=== PATIENT | male | born 1980 | race Caucasian/White ===

== ENCOUNTER → 2020-04-09 08:04 | Outpatient (BNVA) | payer BC, SELFPAY | PROVIDERS: PCP Family Medicine; Referring Provider Family Medicine; Visit Provider Surgery | DX: Z76.89 Persons encountering health services in other specified circumstances (principal) ==

== ENCOUNTER → 2020-05-19 07:25 | Outpatient (BNVA) | payer BC, SELFPAY | PROVIDERS: PCP Family Medicine; Visit Provider Surgery | DX: Z76.89 Persons encountering health services in other specified circumstances (principal) ==

== ENCOUNTER 2020-05-24 10:02 | Outpatient (REF) | payer BC, SELFPAY ==
[2020-05-24 10:48] LABS: MANUAL DIFF FLAG NO
[2020-05-24 11:05] LABS: Basophils Percent Auto 0.7 % (0-2); Eosinophils Absolute Auto 0.1 X10*3/uL (0.0-0.4); Eosinophils Percent Auto 1.9 % (0-4); Hematocrit 45.9 % (42-52); Hemoglobin 15.6 g/dl (14.0-18.0); Imm Gran Abs Auto 0.01 X10*3/uL (0.00-0.03); Imm Gran Pct Auto 0.2 % (0.0-0.4); Lymphocytes Absolute Auto 1.3 X10*3/uL (1.2-4.9); Lymphocytes Percent Auto 30.8 % (20-40); Mean Corpuscular Hemoglobin 30.8 pg (27.0-33.0); Mean Corpuscular Volume 90.7 fL (80-98); Mean Platelet Volume 9.6 fL (9.4-12.4); Monocytes Absolute Auto 0.3 X10*3/uL (0.1-1.2); Monocytes Percent Auto 6.5 % (2-11); Neutrophils Absolute Auto 2.6 X10*3/uL (2.0-8.3); Neutrophils Percent Auto 59.9 % (45-73); Platelet Count 220 X10*3/uL (160-400); Red Blood Count 5.06 X10*6/uL (4.60-5.80); Red Cell Distribution Width 11.7 % (11.0-16.0); White Blood Count 4.3 X10*3/uL (4.8-10.8)
[2020-05-24 11:11] LABS: Estimated Average Glucose 105 mg/dL; Hemoglobin A1c % 5.3 %
[2020-05-24 11:14] LABS: Alanine Aminotransferase 13 U/L (0-40); Albumin Level 4.7 g/dL (3.5-5.0); Alkaline Phosphatase 53 U/L (39-117); Anion Gap 13 (12-20); Aspartate Amino Transferase 16 U/L (5-37); Bilirubin Total 0.9 mg/dL (0.0-1.0); Blood Urea Nitrogen 17 mg/dL (9-16); C Reactive Protein 0.22 mg/dL (< or = 0.50); Calcium 9.6 mg/dL (8.4-10.2); Carbon Dioxide 31 mmol/L (22-29); Chloride 103 mmol/L (96-108); Cholesterol 206 mg/dL; Estimated Glomerular Filt Rate > 60; Glucose Random 90 mg/dL (60-115); HDL Cholesterol 43 mg/dL; LDL Cholesterol Calculated 146 mg/dl; Potassium 4.7 mmol/l (3.3-5.1); Sodium 142 mmol/L (135-145); Total Protein 7.3 g/dL (6.5-8.0); Triglycerides 87 mg/dL
[2020-05-24 11:16] LABS: Prothrombin Time 12.4 SEC (10.8-13.0)
[2020-05-24 11:19] LABS: Partial Thromboplastin Time 40.8 SEC (24.1-38.0)
[2020-05-24 11:35] LABS: Ferritin 137 ng/mL (20-250); TSH reflex Free T4 1.15 mIU/mL (0.32-4.0); Vitamin D 25-OH Total 42.9 ng/mL (>30)
[2020-05-25 14:03] LABS: PTHI 34 pg/mL (14-64)
[2020-05-26 09:45] LABS: Vitamin B12 986 pg/mL (200-900)
[2020-05-26 18:42] LABS: Insulin Level Total 5.7 uIU/mL
[2020-05-27 13:42] LABS: Zinc 84 mcg/dL (60-130)
[2020-05-29 11:17] LABS: Vitamin B1 25 nmol/L (8-30)
[2020-05-30 00:58] LABS: Vitamin A 75 mcg/dL (38-98)
== END 2020-05-24 10:03 | disposition home or self-care (01) ==
LOC: HO.LAB 10:02
PROVIDERS: PCP Family Medicine; Visit Provider Surgery
DX: K90.9 Intestinal malabsorption, unspecified (principal); E66.3 Overweight
CPT/HCPCS: 36415; 80053; 80061; 82306; 82607; 82728; 83036; 83525; 83970; 84425; 84443; 84590; 84630; 85025; 85610; 85730; 86140

== ENCOUNTER → 2020-06-18 08:04 | Outpatient (BNVA) | payer BC, SELFPAY | PROVIDERS: PCP Family Medicine; Visit Provider Surgery | DX: Z76.89 Persons encountering health services in other specified circumstances (principal) ==

== ENCOUNTER → 2020-07-28 08:10 | Outpatient (BNVA) | payer BC, SELFPAY | PROVIDERS: PCP Family Medicine; Visit Provider Surgery ==

== ENCOUNTER → 2020-09-03 08:04 | Outpatient (BNVA) | payer BC, SELFPAY | PROVIDERS: PCP Family Medicine; Visit Provider Surgery ==

== ENCOUNTER → 2020-10-03 08:12 | Outpatient (BNVA) | payer BC, SELFPAY | PROVIDERS: PCP Family Medicine; Visit Provider Surgery ==

== ENCOUNTER → 2020-11-03 08:12 | Outpatient (BNVA) | payer BC, SELFPAY | PROVIDERS: PCP Family Medicine; Visit Provider Surgery ==

== ENCOUNTER → 2021-12-28 13:02 | Outpatient (BNVA) | payer OTHER, SELFPAY | PROVIDERS: PCP Family Medicine; Visit Provider Physician Assistant Medical | DX: S80.211A Abrasion, right knee, initial encounter (principal); S63.502A Unspecified sprain of left wrist, initial encounter; W01.0XXA Fall on same level from slipping, tripping and stumbling without subsequent striking against object, initial encounter | CPT/HCPCS: 73110; 73130; 99203 ==

== ENCOUNTER → 2022-01-04 13:13 | Outpatient (BNVA) | payer OTHER, SELFPAY | PROVIDERS: PCP Family Medicine; Visit Provider Physician Assistant Medical | DX: S80.211A Abrasion, right knee, initial encounter (principal); S63.502A Unspecified sprain of left wrist, initial encounter; W01.0XXA Fall on same level from slipping, tripping and stumbling without subsequent striking against object, initial encounter | CPT/HCPCS: 99213 ==

== ENCOUNTER → 2022-01-13 14:37 | Outpatient (BNVA) | payer OTHER, SELFPAY | PROVIDERS: PCP Family Medicine; Visit Provider Physician Assistant Medical | DX: S63.502A Unspecified sprain of left wrist, initial encounter (principal); W01.0XXA Fall on same level from slipping, tripping and stumbling without subsequent striking against object, initial encounter | CPT/HCPCS: 99213 ==

== ENCOUNTER → 2022-01-29 13:52 | Outpatient (BNVA) | payer OTHER, SELFPAY | PROVIDERS: PCP Family Medicine; Visit Provider Physician Assistant | DX: M25.532 Pain in left wrist (principal) | CPT/HCPCS: 99213 ==

== ENCOUNTER → 2022-02-17 14:12 | Outpatient (BNVA) | payer OTHER, SELFPAY | PROVIDERS: PCP Family Medicine; Visit Provider Physician Assistant | DX: M25.532 Pain in left wrist (principal) | CPT/HCPCS: 99214 ==

== ENCOUNTER 2022-02-19 11:04 | Outpatient (REF) | payer OTHER, SELFPAY ==
--- NOTE | ~2022-02-19 | MR_ITS ---
EXAMINATION: MR WRIST WITHOUT CONTRAST, LEFT CLINICAL INFORMATION: Falling injury. Dorsal pain with numbness to the thumb. COMPARISON: None TECHNIQUE: Multiplanar MR imaging was obtained through the left wrist without contrast on a 1.5 Shanita magnet. FINDINGS: Ligaments/TFCC: Triangular fibrocartilage complex is intact. The volar ulnocarpal ligaments are edematous and thickened, as are the volar radial scaphocapitate and long radiolunate ligaments, most consistent with sprains. No discrete tears. A sprain of the dorsal radiocarpal ligament is also suspected, characterized by ligamentous thickening and edema signal. A small, chronic-appearing perforation is suspected in the dorsal margin of the proximal band of the scapholunate ligament. Scapholunate and lunotriquetral ligaments are otherwise intact. Bones And Articular Cartilage: Mild edema signal at the dorsal aspect of the scaphoid waist likely corresponds to an osseous contusion. No fracture or malalignment. Bone marrow signal is otherwise normal. Articular cartilage appears well-preserved. Joint Fluid: Mild synovitis at the radiocarpal joint with trace joint fluid. No additional effusions. Muscles And Tendons: Intact. No tendon tears or tenosynovitis. Normal muscle signal. Nerves: Carpal tunnel and Guyon's canal are unremarkable. Superficial soft tissues: No significant ganglion cysts. MR/MR wrist LT wo con IMPRESSION: 1. No fracture or malalignment. Probable osseous contusion at the dorsal margin of the scaphoid. 2. Sprain of multiple volar and dorsal extrinsic wrist ligaments. No tears. Intact intrinsic wrist ligaments. 3. Mild radiocarpal synovitis, possibly posttraumatic.
== END 2022-02-19 11:05 | disposition home or self-care (01) ==
LOC: HO.MRI 11:04
PROVIDERS: Visit Provider Internal Medicine
DX: M25.532 Pain in left wrist (principal); R20.0 Anesthesia of skin
CPT/HCPCS: 73221

== ENCOUNTER 2022-03-04 14:00 | Outpatient (RCR) | payer OTHER, BC, SELFPAY ==
--- NOTE | 2022-01-29 15:28 | MHC.OT.OEV ---
[address] [phone] F: [phone] Occupational Therapy Evaluation Diagnosis: Left wrist sprain Date of Onset: 12/27/21 Date of Surgery: Attending Provider: Jeimy Jade Prescribed Treatment: Galilea and marek MD Follow Up Appointment: History of Current Condition: Pt reports he tripped and fell on his left dominant hand at work Seen in the [facility] the next day. XR neg.. Was issued a pre kris wrist splint, put on light duty and given some home exercises. Pt to follow up with the [facility]. 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 Mild difficulty with jars Pain with lifting over 10 gal Severe difficulty with hand tools...and power tools Light duty work, avoiding hammer with left... Sleep: Mild difficulty sleeping on left side.. Driving: Wearing the wrist brace Vision: Balance: Pain Assessment Pain Score: 4 Pain Scale Used: Numeric (0 - 10) Pain Location and Description: 0-4 left volar ulnar wrist, dorsal wrist with wt bearing Aggravating Factors: Wt on left hand or bumping or jarring the hand Alleviating Factors: Compression from the wrist brace Skin and Soft Tissue Assessment Skin and Soft Tissue: Comments: No abnormalities noted Nerve assessment Ulnar Nerve: Median Nerve: Radial Nerve: Comments: Sensory Assessment Temperature: Light Touch: WNL Proprioception: Vibration: Comments: Edema Assessment Upper Extremity: WNL Lower Extremity: Comments: Dexterity Assessment Dexterity: WNL Comments: Special Tests Comments: AROM(PROM) Strength Cervical Cervical Flexion: Cervical Extension: Cervical Lateral Flexion: Cervical Rotation: Comments: Shoulder Flexion: Extension: Abduction: Internal Rotation: External Rotation: Comments: Flexion: Extension: Abduction: Internal Rotation: External Rotation: Comments: Elbow Flexion: Extension: Pronation: Supination: Comments: Flexion: Extension: Pronation: Supination: Comments: Wrist Flexion: R 60 deg L 60 deg Extension: R 65 deg L 55 deg Ulnar Deviation: R 25 deg L 20 deg Radial Deviation: R 10 deg L 10 deg Comments: Pain free with AROM and over pressure Flexion: Extension: Ulnar Deviation: Radial Deviation: Comments: Thumb Thumb CMC Flexion: Thumb MCP Flexion: Thumb IP Flexion: Radial Abduction: Palmar Abduction: Riggins (Kapandji 0-10): Comments: WNL Digits Index MCP: PIP: DIP: Long MCP: PIP: DIP: Ring MCP: PIP: DIP: Small MCP: PIP: DIP: Comments: WNL Gross Grasp: R 130 lb L 65 lb Lateral Pinch: Two-Point Pinch: Three-Jaw Jose Enrique: Comments: Left dominant with discomfort at ulnar wrist Patient Education Primary 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 Patient demonstrates Patient verbalizes Barriers to Learning: None Readiness for Learning: Accepting Who was educated? Patient Comments: Plan of Care Assessment: Pt reports he tripped and fell on his left dominant hand at work Seen in the [facility] the next day. XR neg.. Was issued a pre kris wrist splint, put on light duty and given some home exercises. Pt reports pain improved except with wt bearing on left hand and jarring the wrist. He continues to wear his pre kris brace at work for protection and avoiding hobbies at home. 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 Pt may benefit from a custom orthosis for inc ease with daily activities and progress his ther ex for improved strength and activity tolerance. STG Duration: 3 wks Short Term Goals: Demo indep with HEP Demo wrist ext to > 60 deg Inc left data communications engineer strength to > 80 lb Inc left wt bearing tolerance to > 70 lb Quick DASH score to < 30 pts with activity modifications as needed LTG Duration: 3 wks Ham Stringer Goals: Same as above Frequency and Duration: The patient will be seen 1x wk x 3 wks Treatment Plan: Therapeutic Exercise Therapeutic Activity Home Exercise Program Splinting Patient Education ADL Training Ultrasound Iontophoresis Fluidotherapy Pt on vacation in 2 wks Electronically Signed By: Rosio Sanford OT CHT CLT Reviewed/agree with student documentation: N/A Therapist: Please sign and return to therapist, Thank you for your referral.
--- NOTE | 2022-03-04 15:03 | MHC.OT.DC ---
[address] [phone] F: [phone] Occupational Therapy Discharge Note Provider: Jeimy Jade Diagnosis: Left wrist sprain Date of Surgery: Date of Evaluation: 01/29/22 Date of Discharge: 03/04/22 Treatments to Date: 3 Cancellations to Date: No Shows to Date: Discharge Status: Achieved Goals Improved Function Independent with HEP Discharge Summary: Pt is 4 wks s/p left dominant wrist sprain with minimal difficulty with daily activities including work avoiding heavy use. 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 Occasional brief pain with attempts at heavy use, pain lasting a minute or two ROM is WNL Pt is avoiding heavy work with his left dominant hand at work.. ie hammering and lifting heavy wt He reports all in all its been okay He is indep with HEP . Skill OT is not needed at this time Electronically Signed By: Rosio Sanford OT CHT CLT Reviewed/agree with student documentation: N/A Therapist: Please Sign and return to therapist, thank you for your referral.
== END 2022-04-12 15:24 | disposition home or self-care (01) ==
LOC: HO.OT 14:00
PROVIDERS: PCP Family Medicine; Visit Provider Physician Assistant Medical
DX: S63.502D Unspecified sprain of left wrist, subsequent encounter (principal)
CPT/HCPCS: 29125; 97035; 97110; 97165; 97760

== ENCOUNTER → 2022-03-10 14:52 | Outpatient (BNVA) | payer OTHER, SELFPAY | PROVIDERS: PCP Family Medicine; Visit Provider Physician Assistant | DX: S63.502D Unspecified sprain of left wrist, subsequent encounter (principal); W01.0XXD Fall on same level from slipping, tripping and stumbling without subsequent striking against object, subsequent encounter | CPT/HCPCS: 99213 ==

== ENCOUNTER 2023-09-07 12:11 | Outpatient (AMB) | payer BC, SELFPAY ==
--- NOTE | 2023-09-07 12:15 | A.OFFVIS_ITS ---
Intake VS Expanded 09/07/23 12:22 BP 132/72 Blood Pressure Location Rt brachial Blood Pressure Position Sitting Pulse 88 Pulse Source Pulse Oximeter Temp 97.5 F Temperature Source Tympanic Pulse Oximetry 94 Oxygen Delivery Method Room Air Height 5 ft 9.5 in Weight 303 lb 6.4 oz BMI 44.2 Body Fat % 39.4 Body Fat Mass 119.4 Fat Free Mass 183.8 Visceral Fat Rating 24.0 Body Water % 44.5 Body Water Mass 135.0 Muscle Mass/Score 174.8 Basal Metabolic Rate/Score 2,588 Intake Visit Reasons: (OV) PO LSG 11/29/19 Allergies No Known Allergies [No Known Allergies*] Allergy (Unverified 03/06/20 19:49) Medication List - Last Reconciled 09/07/23 by GLORIA Mendoza blood sugar diagnostic As directed bupropion HCl 150 mg PO BID cholecalciferol (vitamin D3) 50 mcg PO DAILY cinnamon bark (Cinnamon) 500 mg PO DAILY esomeprazole magnesium (Nexium) 40 mg PO DAILY multivitamin 1 cap PO DAILY ondansetron 4 mg PO DAILY PRN sucralfate 5 mL PO QID HPI HPI Comments History of Present Illness Details This?is a?43?yo male who is s/p LSG 11/29/2019. Presents for 3 year 9 month post op visit. Weight at last visit on 10/03/2020 was 207.5 pounds with a BMI of 30.2, weight today is 303.4 pounds, representing a 95.9 pound weight gain with a BMI today of 44.2.? Thinks he is experiencing some reflux, taking Protonix 20mg once or twice a day and carafate twice a day. Feels he has backslid, had some work stress which snowballed . New job brings less stress. Has a history of diabetes. 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) Father Sleep apnea DM (diabetes mellitus) Mother DM (diabetes mellitus) Heart disease Stroke Brother No problems noted. Sister No problems noted. Sister No problems noted. Sister No problems noted. Sister No problems noted. Social History (Updated 04/02/20 @ 14:07 by Kushal Grover [facility]) Alcohol intake: current Assessment & Plan Assessment & Plan (1) Morbid obesity: Code(s): E66.01 - Morbid (severe) obesity due to excess calories (2) History of sleeve gastrectomy: Code(s): Z90.3 - Acquired absence of stomach [part of] Plan New high protein meal plan: 5 bars a day (4 should be 20g bars, last one can be 20g or ZP)- take 2 hours to eat, cut into pieces One meal of 8 forks protein, 8 forks salad/veg or 4f salad/4f healthy carb Reviewed reflux triggers, pt reports he has cut out caffeine/coffee and this has already improved his symptoms. Refilled PPI and carafate for now. I think his reflux will significantly improve with change in meal plan. Discussed formal exercise which pt plans to start- walking outdoors at work for 30 mins on incline path, asked him to start tracking calorie burn. Labs ordered. RTC 4-6 weeks. Texted plan to pt, encouraged him to check in weekly with measurements and text me with any questions between appts. Patient is morbidly obese and is not considered stable at this time. I spent a total of 30 minutes reviewing/updating records, examining the patient and counseling the patient on weight management as detailed above. Orders: Orders Insulin Today Z90.3 - Acquired absence of stomach [part of] Hemoglobin A1c Today Z90.3 - Acquired absence of stomach [part of] IRON PROFILE Today Z90.3 - Acquired absence of stomach [part of] Vitamin B12 and Folate Today Z90.3 - Acquired absence of stomach [part of] C Reactive Protein Today Z90.3 - Acquired absence of stomach [part of] Vitamin B1 Today Z90.3 - Acquired absence of stomach [part of] TSH reflex Free T4 Today Z90.3 - Acquired absence of stomach [part of] Ferritin Today Z90.3 - Acquired absence of stomach [part of] Complete Blood Count Auto Diff Today Z90.3 - Acquired absence of stomach [part of] Lipid Panel Today Z90.3 - Acquired absence of stomach [part of] Comprehensive Met. Panel Today Z90.3 - Acquired absence of stomach [part of] Zinc Today Z90.3 - Acquired absence of stomach [part of] Vitamin A Today Z90.3 - Acquired absence of stomach [part of] Vitamin D 25-OH Total Today Z90.3 - Acquired absence of stomach [part of] Medications: New sucralfate swish in mouth and swallow; use after food/drink 5 mL PO QID 420 mL 3RF pantoprazole 40 mg PO DAILY 90 tabs 3RF Coding Level of Care Code Est Pt Level 4 (40678) Diagnoses Morbid obesity E66.01 History of sleeve gastrectomy Z90.3
[2023-09-07 12:22] VITALS: BP 132/72; PULSE 88; TEMP 36.4; O2SAT 94; BMI 44.2
== END 2023-09-07 12:56 | disposition home or self-care (01) ==
PROVIDERS: PCP Family Medicine; Visit Provider Physician Assistant Surgical
DX: E66.01 Morbid (severe) obesity due to excess calories (principal); Z68.41 Body mass index [BMI] 40.0-44.9, adult; Z90.3 Acquired absence of stomach [part of]; Z98.84 Bariatric surgery status
CPT/HCPCS: 99214

== ENCOUNTER → 2023-09-07 12:11 | Outpatient (BNVA) | payer BC, SELFPAY | PROVIDERS: PCP Family Medicine; Visit Provider Physician Assistant Surgical ==

== ENCOUNTER 2023-09-10 08:28 | Outpatient (REF) | payer BC, SELFPAY ==
[2023-09-10 08:53] LABS: MANUAL DIFF FLAG NO
[2023-09-10 09:11] LABS: Basophils Percent Auto 0.6 % (0-2); Eosinophils Absolute Auto 0.1 X10*3/uL (0.0-0.4); Eosinophils Percent Auto 1.9 % (0-4); Hematocrit 42.3 % (42.0-52.0); Hemoglobin 14.9 g/dl (14.0-18.0); Imm Gran Abs Auto 0.01 X10*3/uL (0.00-0.03); Imm Gran Pct Auto 0.2 % (0.0-0.4); Lymphocytes Absolute Auto 1.5 X10*3/uL (1.2-4.9); Lymphocytes Percent Auto 28.4 % (20-40); Mean Corpuscular HGB Conc 35.2 g/dl (31.0-36.0); Mean Corpuscular Hemoglobin 30.2 pg (27.0-33.0); Mean Corpuscular Volume 85.6 fL (80.0-98.0); Mean Platelet Volume 9.4 fL (9.4-12.4); Monocytes Absolute Auto 0.4 X10*3/uL (0.1-1.2); Monocytes Percent Auto 7.7 % (2-11); Neutrophils Absolute Auto 3.3 x10*3/uL (2.0-8.3); Neutrophils Percent Auto 61.2 % (45-73); Platelet Count 234 X10*3/uL (160-400); Red Blood Count 4.94 X10*6/uL (4.60-5.80); Red Cell Distribution Width 12.2 % (11.0-16.0); White Blood Count 5.4 X10*3/uL (4.8-10.8)
[2023-09-10 09:19] LABS: Estimated Average Glucose 128 mg/dL; Hemoglobin A1c % 6.1 % (<6.0)
[2023-09-10 09:38] LABS: Alanine Aminotransferase 29 U/L (0-40); Albumin Level 4.3 g/dL (3.5-5.0); Alkaline Phosphatase 63 U/L (39-117); Anion Gap 11 (12-20); Aspartate Amino Transferase 28 U/L (5-37); Bilirubin Total 0.6 mg/dL (0.0-1.0); Blood Urea Nitrogen 13 mg/dL (9-16); C Reactive Protein 0.74 mg/dL (< or = 0.50); Calcium 9.6 mg/dL (8.4-10.2); Carbon Dioxide 30 mmol/L (22-29); Chloride 104 mmol/L (96-108); Cholesterol 178 mg/dL (<200); Estimated Glomerular Filt Rate > 60; Glucose Random 115 mg/dL (60-115); HDL Cholesterol 36 mg/dL (>40); Iron 85 mcg/dL (45-160); LDL Cholesterol Calculated 95 mg/dL (<100); Percent Iron Saturation 29 % (15-50); Potassium 4.3 mmol/L (3.3-5.1); Sodium 141 mmol/L (135-145); Total Iron Binding Capacity 292 mcg/dL (228-428); Total Protein 7.1 g/dL (6.5-8.0); Triglycerides 235 mg/dL (<150); Unsaturated Iron Binding 207 ug/dL
[2023-09-10 10:04] LABS: Ferritin 245 ng/mL (20-250)
[2023-09-10 10:31] LABS: Insulin 13 uU/mL (2-29)
[2023-09-10 10:34] LABS: Folate 14.3 ng/mL (> or = 4.0); Vitamin B12 722 pg/mL (200-900)
[2023-09-13 12:28] LABS: Zinc 75 mcg/dL (60-130)
[2023-09-16 01:44] LABS: Vitamin A 48 mcg/dL (38-98)
[2023-09-16 10:40] LABS: Vitamin B1 19 nmol/L (8-30)
== END 2023-09-10 08:29 | disposition home or self-care (01) ==
LOC: HO.LAB 08:28
PROVIDERS: Visit Provider Physician Assistant Surgical
DX: Z13.6 Encounter for screening for cardiovascular disorders (principal); Z90.3 Acquired absence of stomach [part of]
CPT/HCPCS: 36415; 80053; 80061; 82306; 82607; 82728; 82746; 83036; 83525; 83540; 84425; 84443; 84590; 84630; 85025; 86140

== ENCOUNTER 2023-10-17 14:03 | Outpatient (AMB) | payer BC, SELFPAY ==
--- NOTE | 2023-10-17 13:56 | A.OFFVIS_ITS ---
VS Expanded 10/17/23 14:15 Height 5 ft 9.5 in Weight 298 lb 8 oz BMI 43.4 Intake Visit Reasons: (Telephone) PO LSG 01/07/20 Allergies No Known Allergies [No Known Allergies*] Allergy (Unverified 03/06/20 19:49) Medication List - Last Reconciled 10/17/23 by GLORIA Mendoza blood sugar diagnostic As directed bupropion HCl SR 150 mg PO BID cholecalciferol (vitamin D3) 50 mcg PO DAILY cinnamon bark (Cinnamon) 500 mg PO DAILY multivitamin 1 cap PO DAILY ondansetron 4 mg PO DAILY PRN pantoprazole 40 mg PO DAILY sucralfate 5 mL PO QID HPI Comments Details: This?is a?43?yo male who is s/p LSG 01/07/2020. Weight at last visit on 09/07/2023 was 303,4 pounds with a BMI of 44.2, weight today is 298.8 pounds, representing a 4.6 pound weight loss with a BMI today of 43.3.? No complaints of nausea, emesis, abdominal pain or reflux, or constipation. Pt reports being busy with work, wasn't cooking at home as much. Present meal plan includes: 5 bars a day (4 should be 20g bars, last one can be 20g or ZP)- take 2 hours to eat, cut into pieces One meal of 8 forks protein, 8 forks salad/veg or 4f salad/4f healthy carb Exercise routine includes: hill walking at work 30 minutes hasn't been able to do this as much, but does walk dogs 30 min per day, but level ground, lots of stops [facility] Medical History (Updated 09/07/23 @ 12:23 by GLORIA Mendoza) Intestinal malabsorption Overweight Surgical History (Updated 09/07/23 @ 12:23 by GLORIA Mendoza) History of sleeve gastrectomy Family History (Updated 04/02/20 @ 14:06 by Kushal Grover CMA) Father Sleep apnea DM (diabetes mellitus) Mother DM (diabetes mellitus) Heart disease Stroke Brother No problems noted. Sister No problems noted. Sister No problems noted. Sister No problems noted. Sister No problems noted. Social History (Updated 04/02/20 @ 14:07 by Kushal Grover [facility]) Alcohol intake: current Telehealth Telehealth Telehealth Platform: Telephone Location of provider rendering services: other Location of patient: address on file Patient Identification confirmed using: Name, : Yes Telehealth method: voice only Patient verbally consented to treatment: Yes Patient verbally consented to billing insurance company: Yes Patient informed of any privacy concerns related to visit: Yes Minutes spent on Phone/Video with Pt.: 15 Assessment & Plan Assessment & Plan (1) Morbid obesity: Code(s): E66.01 - Morbid (severe) obesity due to excess calories Category: Medical (2) History of sleeve gastrectomy: Code(s): Z90.3 - Acquired absence of stomach [part of] Category: Surgical Plan Pt's girlfriend has been using protein danielle which he could also use if 15 or 20g- could swap out for one bar. This may be easier for him during workday when he has meetings. Discussed consistency, incorporating even short periods of exercise into his day, making sure to hit protein goals. Pt will try to send weekly weights via text. Labs reviewed- vit A supplement ordered. Elevated TG and HgbA1C noted RTC 6 weeks. Patient is morbidly obese and is not considered stable at this time. I spent a total of 30 minutes reviewing/updating records, examining the patient and counseling the patient on weight management as detailed above. Medications: New vitamin A palmitate 10,000 units PO DAILY 90 caps 3RF
[2023-10-17 14:15] VITALS: BMI 43.4
== END 2023-10-17 14:16 | disposition home or self-care (01) ==
LOC: HO.HBS 14:03
PROVIDERS: PCP Family Medicine; Visit Provider Physician Assistant Surgical
DX: E66.01 Morbid (severe) obesity due to excess calories (principal); Z68.41 Body mass index [BMI] 40.0-44.9, adult; Z90.3 Acquired absence of stomach [part of]; Z98.84 Bariatric surgery status
CPT/HCPCS: 99442

== ENCOUNTER → 2023-10-17 14:03 | Outpatient (BNVA) | payer BC, SELFPAY | PROVIDERS: PCP Family Medicine; Visit Provider Physician Assistant Surgical ==

== ENCOUNTER 2024-01-03 15:40 | Outpatient (AMB) | payer BC, SELFPAY ==
--- NOTE | 2024-01-03 15:27 | MHC.OFFVISWM ---
VS Expanded 01/03/24 15:30 Height 5 ft 9.5 in Weight 298 lb 6 oz BMI 43.4 Intake Visit Reasons: TELEPHONE PO LSG 01/07/20 Allergies No Known Allergies [No Known Allergies*] Allergy (Unverified 03/06/20 19:49) Medication List - Last Reconciled 01/03/24 by GLORIA Mendoza blood sugar diagnostic As directed bupropion HCl SR 150 mg PO BID cholecalciferol (vitamin D3) 50 mcg PO DAILY cinnamon bark (Cinnamon) 500 mg PO DAILY dextroamphetamine-amphetamine 10 mg (Adderall) 10 mg PO DAILY multivitamin 1 cap PO DAILY ondansetron 4 mg PO DAILY PRN pantoprazole 40 mg PO DAILY sucralfate 5 mL PO QID vitamin A palmitate 10,000 units PO DAILY HPI Comments Details: This?is a?43?yo male who is s/p LSG 01/07/2020. Presents for 4 year post op visit. Weight today is 298.6 pounds, representing a 0.2 pound weight loss since last visit on 10/17/2023 with a BMI today of 43.4.? No complaints of nausea, emesis, abdominal pain or reflux, or constipation. Started taking Adderall (from PCP) 10mg for ADHD. Present meal plan includes: 5 bars a day (4 should be 20g bars, last one can be 20g or ZP)- take 2 hours to eat, cut into pieces -can sub one protein water for a bar if he wants One meal of 8 forks protein, 8 forks salad/veg or 4f salad/4f healthy carb Exercise routine includes: has not been hill walking at work 30 minutes hasn't been able to do this as much, but does walk dogs 30 min per day, but level ground, lots of stops [facility] Medical History (Updated 09/07/23 @ 12:23 by GLORIA Mendoza) Intestinal malabsorption Overweight Surgical History (Updated 09/07/23 @ 12:23 by GLORIA Mendoza) History of sleeve gastrectomy Family History (Updated 04/02/20 @ 14:06 by Kushal Grover CMA) Father Sleep apnea DM (diabetes mellitus) Mother DM (diabetes mellitus) Heart disease Stroke Brother No problems noted. Sister No problems noted. Sister No problems noted. Sister No problems noted. Sister No problems noted. Social History (Updated 04/02/20 @ 14:07 by Kushal Grover [facility]) Alcohol intake: current Telehealth Telehealth Telehealth Platform: Telephone Location of provider rendering services: practice address Location of patient: address on file Patient Identification confirmed using: Name, : Yes Telehealth method: voice only Patient verbally consented to treatment: Yes Patient verbally consented to billing insurance company: Yes Patient informed of any privacy concerns related to visit: Yes Minutes spent on Phone/Video with Pt.: 15 Assessment & Plan Assessment & Plan (1) History of sleeve gastrectomy: Code(s): Z90.3 - Acquired absence of stomach [part of] Category: Surgical (2) Morbid obesity: Code(s): E66.01 - Morbid (severe) obesity due to excess calories Category: Medical Plan Pt would like to use premade Fairlife shakes as part of plan to make it easier to get enough protein. Goal 120g per day. Can also use protein danielle. Pt understands he also needs to increase exercise. RTC 2 months. I spent a total of 30 minutes reviewing/updating records, examining the patient and counseling the patient on weight management as detailed above.
[2024-01-03 15:30] VITALS: BMI 43.4
== END 2024-01-03 15:51 | disposition home or self-care (01) ==
LOC: HO.HBS 15:40
PROVIDERS: PCP Family Medicine; Visit Provider Physician Assistant Surgical
DX: E66.01 Morbid (severe) obesity due to excess calories (principal); Z68.41 Body mass index [BMI] 40.0-44.9, adult; Z90.3 Acquired absence of stomach [part of]; Z98.84 Bariatric surgery status
CPT/HCPCS: 99214

== ENCOUNTER → 2024-01-03 15:40 | Outpatient (BNVA) | payer BC, SELFPAY | PROVIDERS: PCP Family Medicine; Visit Provider Physician Assistant Surgical ==

== ENCOUNTER 2024-03-13 13:07 | Outpatient (AMB) | payer BC, SELFPAY ==
--- NOTE | 2024-03-13 13:02 | A.OFFVIS_ITS ---
VS Expanded 03/13/24 13:06 Height 5 ft 9.5 in Weight 303 lb BMI 44.1 Intake Visit Reasons: TELEPHONE PO LSG 01/07/20 Allergies No Known Allergies [No Known Allergies*] Allergy (Unverified 03/06/20 19:49) Medication List - Last Reconciled 03/13/24 by GLORIA Mendoza blood sugar diagnostic As directed bupropion HCl SR 150 mg PO BID cholecalciferol (vitamin D3) 50 mcg PO DAILY cinnamon bark (Cinnamon) 500 mg PO DAILY dextroamphetamine-amphetamine 10 mg (Adderall) 10 mg PO DAILY multivitamin 1 cap PO DAILY pantoprazole 40 mg PO DAILY sucralfate 5 mL PO QID vitamin A palmitate 10,000 units PO DAILY HPI Comments Details: This?is a?43?yo male who is s/p LSG 01/07/2020. Presents for 4 year 2 month post op visit. Weight gain of 4.4 lbs since last OV.? No complaints of nausea, emesis, abdominal pain or reflux, or constipation. Pt reports It's been kind of a crappy month. My mother a few weeks ago. Went to the [employer] last night and ate off plan. Has not noticed any appetite suppression effects from Adderall. Present meal plan includes: 5 bars a day (4 should be 20g bars, last one can be 20g or ZP)- take 2 hours to eat, cut into pieces -can sub one protein water for a bar if he wants OR premade Fairlife shakes, or protein danielle One meal of 8 forks protein, 8 forks salad/veg or 4f salad/4f healthy carb goal 120g protein/day but does not always hit this if he gets busy/forgets to eat often Exercise routine includes: has not been hill walking at work 30 minutes hasn't been able to do this as much, but does walk dogs 30 min per day, but level ground, lots of stops [facility] Medical History (Updated 09/07/23 @ 12:23 by GLORIA Mendoza) Intestinal malabsorption Overweight Surgical History (Updated 09/07/23 @ 12:23 by GLORIA Mendoza) History of sleeve gastrectomy Family History (Updated 04/02/20 @ 14:06 by Kushal Grover CMA) Father Sleep apnea DM (diabetes mellitus) Mother DM (diabetes mellitus) Heart disease Stroke Brother No problems noted. Sister No problems noted. Sister No problems noted. Sister No problems noted. Sister No problems noted. Social History (Updated 04/02/20 @ 14:07 by uKshal Grover [facility]) Alcohol intake: current Telehealth Telehealth Telehealth Platform: Telephone Location of provider rendering services: other Location of patient: address on file Patient Identification confirmed using: Name, : Yes Telehealth method: voice only Patient verbally consented to treatment: Yes Patient verbally consented to billing insurance company: Yes Patient informed of any privacy concerns related to visit: Yes Minutes spent on Phone/Video with Pt.: 16 Assessment & Plan Assessment & Plan (1) History of sleeve gastrectomy: Code(s): Z90.3 - Acquired absence of stomach [part of] Category: Surgical (2) Morbid obesity: Code(s): E66.01 - Morbid (severe) obesity due to excess calories Category: Medical Plan 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 Discussed getting back to more exercise, walking, being consistent with meal plan shelter. Discussed choosing your hard - strict meal plan vs being morbidly obese and complications related to that. RTC 3-4 months. I spent a total of 30 minutes reviewing/updating records, examining the patient and counseling the patient on weight management as detailed above.
[2024-03-13 13:06] VITALS: BMI 44.1
== END 2024-03-13 13:28 | disposition home or self-care (01) ==
LOC: HO.HBS 13:07
PROVIDERS: PCP Family Medicine; Visit Provider Physician Assistant Surgical
DX: E66.01 Morbid (severe) obesity due to excess calories (principal); Z68.41 Body mass index [BMI] 40.0-44.9, adult; Z90.3 Acquired absence of stomach [part of]; Z98.84 Bariatric surgery status
CPT/HCPCS: 98967

== ENCOUNTER → 2024-03-13 13:07 | Outpatient (BNVA) | payer BC, SELFPAY | PROVIDERS: PCP Family Medicine; Visit Provider Physician Assistant Surgical ==

== ENCOUNTER 2024-07-02 12:48 | Outpatient (AMB) | payer BC, SELFPAY ==
--- NOTE | 2024-07-02 12:35 | A.OFFVIS_ITS ---
VS Expanded 07/02/24 12:37 Height 5 ft 9.5 in Weight 301 lb BMI 43.8 Intake Visit Reasons: TELEPHONE PO LSG 01/07/20 Allergies No Known Allergies [No Known Allergies*] Allergy (Unverified 03/06/20 19:49) Medication List - Last Reconciled 07/02/24 by GLORIA Mendoza blood sugar diagnostic As directed bupropion HCl SR 150 mg PO BID cholecalciferol (vitamin D3) 50 mcg PO DAILY cinnamon bark (Cinnamon) 500 mg PO DAILY dextroamphetamine-amphetamine 10 mg (Adderall) 10 mg PO DAILY multivitamin 1 cap PO DAILY pantoprazole 40 mg PO DAILY sucralfate 5 mL PO QID vitamin A palmitate 10,000 units PO DAILY HPI Comments Details: This?is a?43?yo male who is s/p LSG 01/07/2020. Pt reports getting down to 295, then overate during holidays. Present meal plan includes: 5 bars a day (4 should be 20g bars, last one can be 20g or ZP)- take 2 hours to eat, cut into pieces -can sub one protein water for a bar if he wants OR premade Fairlife shakes, or protein danielle One meal of 8 forks protein, 8 forks salad/veg or 4f salad/4f healthy carb goal 120g protein/day but does not always hit this if he gets busy/forgets to eat often Exercise routine includes: has not been hill walking at work 30 minutes hasn't been able to do this as much, but does walk dogs 30 min per day, but level ground, lots of stops [facility] Medical History (Updated 09/07/23 @ 12:23 by GLORIA Mendoza) Intestinal malabsorption Overweight Surgical History (Updated 09/07/23 @ 12:23 by GLORIA Mendoza) History of sleeve gastrectomy Family History (Updated 04/02/20 @ 14:06 by Kushal Grover CMA) Father Sleep apnea DM (diabetes mellitus) Mother DM (diabetes mellitus) Heart disease Stroke Brother No problems noted. Sister No problems noted. Sister No problems noted. Sister No problems noted. Sister No problems noted. Social History (Updated 04/02/20 @ 14:07 by Kushal Grover CMA) Alcohol intake: current Telehealth Telehealth Telehealth Platform: Telephone Location of provider rendering services: other Location of patient: address on file Patient Identification confirmed using: Name, : Yes Telehealth method: voice only Patient verbally consented to treatment: Yes Patient verbally consented to billing insurance company: Yes Patient informed of any privacy concerns related to visit: Yes Minutes spent on Phone/Video with Pt.: 16 Assessment & Plan Assessment & Plan (1) History of sleeve gastrectomy: Code(s): Z90.3 - Acquired absence of stomach [part of] Category: Surgical (2) Morbid obesity: Code(s): E66.01 - Morbid (severe) obesity due to excess calories Category: Medical Plan Pt reports he knows what he needs to do and just needs to be consistent. We talked about the overall goal of getting adequate protein per day and can vary the combination of supplements each day to hit protein goal. We discussed what is it going to take for sustained progress with weight loss since his weight has remained relatively stable since we have started meeting. He will start texting me on Mondays for accountability with weight measurements. RTC 3-4 months. I spent a total of 30 minutes reviewing/updating records, examining the patient and counseling the patient on weight management as detailed above.
[2024-07-02 12:37] VITALS: BMI 43.8
== END 2024-07-02 12:50 | disposition home or self-care (01) ==
LOC: HO.HBS 12:48
PROVIDERS: PCP Family Medicine; Visit Provider Physician Assistant Surgical
DX: E66.813 Obesity, class 3 (principal); Z68.41 Body mass index [BMI] 40.0-44.9, adult; Z90.3 Acquired absence of stomach [part of]; Z98.84 Bariatric surgery status
CPT/HCPCS: 98967

== ENCOUNTER → 2024-07-02 12:48 | Outpatient (BNVA) | payer BC, SELFPAY | PROVIDERS: PCP Family Medicine; Visit Provider Physician Assistant Surgical ==

== ENCOUNTER 2024-10-22 12:22 | Outpatient (AMB) | payer BC, SELFPAY ==
--- NOTE | 2024-10-22 12:05 | A.OFFVIS_ITS ---
VS Expanded 10/22/24 12:12 Height 5 ft 9.5 in Weight 301 lb BMI 43.8 Intake Visit Reasons: TELEPHONE PO LSG 01/07/20 Allergies No Known Allergies [No Known Allergies*] Allergy (Unverified 03/06/20 19:49) Medication List - Last Reconciled 10/22/24 by GLORIA Mendoza blood sugar diagnostic As directed bupropion HCl SR 150 mg PO BID cholecalciferol (vitamin D3) 50 mcg PO DAILY cinnamon bark (Cinnamon) 500 mg PO DAILY dextroamphetamine-amphetamine 10 mg (Adderall) 10 mg PO DAILY multivitamin 1 cap PO DAILY pantoprazole 40 mg PO DAILY sucralfate 5 mL PO QID vitamin A palmitate 10,000 units PO DAILY HPI Comments Details: This?is a?44?yo M who is s/p LSG 01/07/2020. Weight same since last visit 3 months ago. Present meal plan includes: 5 bars a day (4 should be 20g bars, last one can be 20g or ZP)- take 2 hours to eat, cut into pieces -can sub one protein water for a bar if he wants OR premade Fairlife shakes, or protein danielle One meal of 8 forks protein, 8 forks salad/veg or 4f salad/4f healthy carb goal 120g protein/day but does not always hit this if he gets busy/forgets to eat often [facility] I do good during the day but then I go home and sabatoge myself Exercise routine includes: has not been hill walking at work 30 minutes hasn't been able to do this as much, but does walk dogs 30 min per day, but level ground, lots of stops [facility] Medical History (Updated 09/07/23 @ 12:23 by GLORIA Mendoza) Intestinal malabsorption Overweight Surgical History (Updated 09/07/23 @ 12:23 by GLORIA Mendoza) History of sleeve gastrectomy Family History (Updated 04/02/20 @ 14:06 by Kushal Grover CMA) Father Sleep apnea DM (diabetes mellitus) Mother DM (diabetes mellitus) Heart disease Stroke Brother No problems noted. Sister No problems noted. Sister No problems noted. Sister No problems noted. Sister No problems noted. Social History (Updated 04/02/20 @ 14:07 by Kushal Grover [facility]) Alcohol intake: current Telehealth Telehealth Telehealth Platform: Telephone Location of provider rendering services: other Location of patient: address on file Patient Identification confirmed using: Name, : Yes Telehealth method: voice only Patient verbally consented to treatment: Yes Patient verbally consented to billing insurance company: Yes Patient informed of any privacy concerns related to visit: Yes Minutes spent on Phone/Video with Pt.: 16 Assessment & Plan Assessment & Plan (1) History of sleeve gastrectomy: Code(s): Z90.3 - Acquired absence of stomach [part of] Category: Surgical (2) Morbid obesity: Code(s): E66.01 - Morbid (severe) obesity due to excess calories Category: Medical Plan Offered BH appt to help with boredom eating and strategies for avoiding, pt declines at this point. I encouraged him to consider GLP1 agonists as his weight has been stagnant for many months and he remains morbidly obese. He is going to ask his PCP about restarting metformin as it worked well for him in the past. His HgbA1C was up to 6.1 last year, will have rechecked by PCP also. RTC 3-4mo.
[2024-10-22 12:12] VITALS: BMI 43.8
== END 2024-10-22 12:26 | disposition home or self-care (01) ==
LOC: HO.HBS 12:22
PROVIDERS: PCP Family Medicine; Visit Provider Physician Assistant Surgical
DX: E66.01 Morbid (severe) obesity due to excess calories (principal); E66.813 Obesity, class 3; Z68.41 Body mass index [BMI] 40.0-44.9, adult; Z90.3 Acquired absence of stomach [part of]; Z98.84 Bariatric surgery status
CPT/HCPCS: 98967

== ENCOUNTER → 2024-10-22 12:22 | Outpatient (BNVA) | payer BC, SELFPAY | PROVIDERS: PCP Family Medicine; Visit Provider Physician Assistant Surgical | DX: E66.01 Morbid (severe) obesity due to excess calories (principal); Z98.84 Bariatric surgery status | CPT/HCPCS: 98967 ==

== ENCOUNTER 2025-02-12 12:03 | Outpatient (AMB) | payer BC, SELFPAY ==
--- NOTE | 2025-02-12 11:59 | A.OFFVIS_ITS ---
VS Expanded 02/12/25 12:08 Height 5 ft 9.5 in Weight 296 lb 8 oz BMI 43.2 Intake Visit Reasons: Phone - PO LSG 01/07/20 Allergies No Known Allergies (No Known Allergies*) Allergy (Unverified 03/06/20 19:49) Medication List - Last Reconciled 02/12/25 by GLORIA Mendoza blood sugar diagnostic As directed bupropion HCl SR 150 mg PO BID cholecalciferol (vitamin D3) 50 mcg PO DAILY cinnamon bark (Cinnamon) 500 mg PO DAILY dextroamphetamine-amphetamine 10 mg (Adderall) 10 mg PO DAILY multivitamin 1 cap PO DAILY pantoprazole 40 mg PO DAILY semaglutide (Ozempic) 0.5 mg subcut QWEEK vitamin A palmitate 10,000 units PO DAILY HPI Comments Details: This?is a?44?yo M who is s/p LSG 01/07/2020. Weight loss of 4.2lb since last OV 3mo ago. Pt reports he was started on Ozempic by his PCP. Currently on 0.5mg. Pt reports that food noise has improved on this. No significant side effects. Present meal plan includes: 5 bars a day (4 should be 20g bars, last one can be 20g or ZP)- take 2 hours to eat, cut into pieces -can sub one protein water for a bar if he wants OR premade Fairlife shakes, or protein danielle One meal of 8 forks protein, 8 forks salad/veg or 4f salad/4f healthy carb reports he does PP or Equate 30g shakes spread over the day, trying to hit 90g Exercise routine includes: has not been hill walking at work 30 minutes hasn't been able to do this as much, but does walk dogs 30 min per day, but level ground, lots of stops COUNTS INCLUDE 234 BEDS AT THE [facility] Medical History (Updated 09/07/23 @ 12:23 by GLORIA Mendoza) Intestinal malabsorption Overweight Surgical History (Updated 09/07/23 @ 12:23 by GLORIA Mendoza) History of sleeve gastrectomy Family History (Updated 04/02/20 @ 14:06 by Kushal Grover [facility]) Father Sleep apnea DM (diabetes mellitus) Mother DM (diabetes mellitus) Heart disease Stroke Brother No problems noted. Sister No problems noted. Sister No problems noted. Sister No problems noted. Sister No problems noted. Social History (Updated 04/02/20 @ 14:07 by Kushal Grover [facility]) Alcohol intake: current Telehealth Telehealth Telehealth Platform: Telephone Location of provider rendering services: practice address Location of patient: other Patient Identification confirmed using: Name, : Yes Telehealth method: voice only Patient verbally consented to treatment: Yes Patient verbally consented to billing insurance company: Yes Patient informed of any privacy concerns related to visit: Yes Minutes spent on Phone/Video with Pt.: 14 Assessment & Plan Assessment & Plan (1) History of sleeve gastrectomy: Code(s): Z90.3 - Acquired absence of stomach [part of] Category: Surgical (2) Morbid obesity: Code(s): E66.01 - Morbid (severe) obesity due to excess calories Category: Medical Plan Pt to continue on Ozempic, tolerating well. Due for labs, will have checked by PCP. Encouraged him to get at least 100g protein per day if able. He is also interested in support groups so will get him information. RTC 6mo.
[2025-02-12 12:08] VITALS: BMI 43.2
--- OUTSIDE RECORDS SUMMARY | 2025-02-12 12:56 | XMS_ITS | Encounter Summary ---
Author Organization Formerly [facility] Address [address] [place] [id number] Phone Care Team Providers Care Stitcher Feeder Name Role Phone Antony Moreira DO Unavailable Antony Moreira DO Primary Care Provider Maryana Moss MD Unavailable [phone] Ilda Bravo MD Unavailable [phone] Merari Huston NP Unavailable Antony Moreira DO Unavailable Encounter Details Date Type Department Care Team (Late st Contact Info) Description 07/01/2017 Transcribe Orders [facility] Laboratory [address] [place] [address] Antony Moreira DO [address] [place] [address] Type 2 diabetes mellitus without complication, without long-term current use of insulin Social History Tobacco Use Types Packs/Day Years Used Date Smoking Tobacco: Never Smokeless Tobacco: Never Sex and Gender Information Value Date Recorded Sex Assigned at Not on file Legal Sex Male 9:21 PM EDT Gender Identity Not on file Sexual Orientation Not on file Occupation Industry Job Start Date Job End Date [employer]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 [employer] Not on file Not on file Not on file documented as of this encounter Plan of Treatment Upcoming Encounters Date Type Department Care Team (Late st Contact Info) Description 12/19/2025 8:00 AM EDT Office Visit [facility] [address] [place] [address] Antony Moreira DO [address] [place] [address] [email or web address] documented as of this encounter Procedures Procedure Name Priority Date/Time Associated Diagnosis Comments COMPREHENSIVE METABOLIC PANEL Routine 07/01/2017 10:02 AM EST Type 2 diabetes mellitus without complication, without long-term current use of insulin MICROALBUMIN/CREATININ E RATIO, RANDOM URINE Routine 07/01/2017 10:02 AM EST Type 2 diabetes mellitus without complication, without long-term current use of insulin HEMOGLOBIN A1C Routine 07/01/2017 10:02 AM EST Type 2 diabetes mellitus without complication, without long-term current use of insulin LIPID PANEL Routine 07/01/2017 10:02 AM EST Type 2 diabetes mellitus without complication, without long-term current use of insulin documented in this encounter Results * Microalbumin/creatinine ratio, random urine (07/01/2017 10:02 AM EST) URINE MICROALBUMIN 0.6 0 - 2.3 mg/dL [facility] URINE CREATININE 158 mg/dL [facility] MICROALB/CRE RATIO NOT CALCULATED 0 - 20 mg/g Cre [facility] Comment:due to Microalbumin <1.2 Urine (Urine) 07/01/2017 10: 02 AM EST 07/01/2017 10:07 AM EST us Antony Moreira DO URINE ORDERABLES Final Result [facility] [address] [place] [address] * (ABNORMAL) Lipid panel (07/01/2017 10:02 AM EST) HDL 33 mg/dL [facility] Comment: Interpretation: Risk Level Males Decreased >45 mg/dL Average 40-45 mg/dL Increased <40 mg/dL CHOLESTEROL 101 0 - 240 mg/dL [facility] TRIGLYCERIDES 153 30 - 160 mg/dL [facility] LDL 37(L) 50 - 129 mg/dL [facility] Comment: LDL levels in terms of risk for coronary heart disease: <100 mg/dL: Optimal 100-129 mg/dL: Near or above optimal 130-159 mg/dL: Borderline high 160-189 mg/dL: High >190 mg/dL: Very High CARDIAC RISK RATIO 3.1(L) 3.4 - 5.0 [facility] Blood 07/01/2017 10:0 2 AM EST 07/01/2017 10:06 AM EST Tremor Video LAB BLOOD ORDERABLES Final Resul t Performing Organization Address [facility]/ZIP Co de Phone Number [address] [address] * (ABNORMAL) Hemoglobin A1c (07/01/2017 10:02 AM EST) HEMOGLOBIN A1C 6.0(H) 4.3 - 5.8 % [facility] Blood 07/01/2017 10:0 2 AM EST 07/01/2017 10:06 AM EST Tremor Video LAB BLOOD ORDERABLES Final Resul t Performing Organization Address City/[facility]/ZIP Co de Phone Number [address] [address] * Comprehensive metabolic panel (07/01/2017 10:02 AM EST) SODIUM 139 133 - 146 mmol/L [facility] POTASSIUM 4.1 3.3 - 5.1 mmol/L [facility] CHLORIDE 101 96 - 108 mmol/L [facility] CO2 26 21 - 35 mmol/L [facility] BUN 11 6 - 19 mg/dL [facility] CREATININE 0.60 0.5 - 1.5 mg/dL [facility] GLUCOSE 96 70 - 99 mg/dL [facility] ALBUMIN 4.1 3.9 - 4.8 g/dL [facility] TOTAL PROTEIN 7.2 6.5 - 8.0 g/dL [facility] CALCIUM 8.9 8.4 - 10.3 mg/dL [facility] ALKALINE PHOSPHATASE 61 39 - 117 U/L [facility] TOTAL BILIRUBIN 0.7 0 - 1.2 mg/dL [facility] AST 13 0 - 37 U/L [facility] ALT 16 0 - 40 U/L [facility] GLOBULIN 3.1 1 - 4.8 g/dL [facility] EGFR >60 >60 mL/min/1.7 3m2 [facility] Comment:Abnormal if <60. If patient is -[place], multiply the result by 1.21. ANION GAP 16 10 - 20 mmol/L [facility] Blood 07/01/2017 10:0 2 AM EST 07/01/2017 10:06 AM EST us Antony Moreira DO LAB BLOOD ORDERABLES Final Resul t [facility] [address] [place] [address] documented in this encounter Visit Diagnoses Diagnosis Type 2 diabetes mellitus without complication, without long-term current use of insulin documented in this encounter Care Teams Stitcher Feeder Relationship Specialty Start Date End Date Antony Moreira DO [address] [place] [address] [email or web address] PCP - General 04/04/17 Antony Moreira DO [address] [place] [address] Historical LMR Provider 04/09/17 Maryana Moss MD [address] [place] [address], [address] [place] [address] Historical LMR Provider 04/09/17 Ilda Bravo MD [address] [address] [email or web address] Historical LMR Provider 04/09/17 Merari Huston NP [address] [place] [id number] Historical LMR Provider 04/09/17 2 Antony Moreira DO [address] [place] [address] [email or web address] Insurance Assigned Provider 09/24/23 documented as of this encounter Additional Source Comments The information contained in this document represents components of the legal health record. It is not the complete legal health record.[facility]ly [facility]
--- OUTSIDE RECORDS SUMMARY | 2025-02-12 12:56 | XMS_ITS | Clinical Summary ---
Author Organization [facility] Address [address] [place] [phone] Phone Care Team Providers Care Hotbed Transfer Operator Name Role Phone Antony Moreira DO Unavailable Antony Moreira DO Primary Care Provider [phone] Ilda Bravo MD Unavailable [phone] Antony Moreira DO Unavailable Allergies No known active allergies Medications lancets (ONETOUCH DELICA LANCETS) 30 gauge MiscIndications: Type 2 diabetes mellitus without complication, without long-term current use of insulin 1 each by Percutaneous route 4 (four) times a day. 350 each 3 017 Active therapeutic multivitamin tablet Take 1 tablet by mouth daily. Active calcium citrate (CALCITRATE) 950 mg (200 mg elemental) tablet Take 1 tablet by mouth daily. Active blood sugar diagnostic (ONETOUCH ULTRA TEST) Strp stripsIndication s:Type 2 diabetes mellitus without complication, without long-term current use of insulin monitor blood sugars up to 4 times daily 350 strip 3 022 Active buPROPion (WELLBUTRIN SR) 150 MG SR 12 hr tabletIndication s:Depression TAKE 1 TABLET(150 MG) BY MOUTH TWICE DAILY 180 tablet 3 024 Active pantoprazole (PROTONIX) 40 MG tablet Take 40 mg by mouth daily. Active semaglutide (OZEMPIC) 0.25 mg or 0.5 mg (2 mg/3 mL) subcutaneous injection penIndications:T ype 2 diabetes mellitus without complication, without long-term current use of insulin Inject 0.5 mg under the skin every 7 days. 3 mL 025 Active dextroamphetamin e-amphetamine (ADDERALL) 10 mg Tab tabletIndication s:Attention deficit disorder (ADD) without hyperactivity Take 1 tablet (10 mg total) by mouth daily for 28 days. 28 tablet 025 2024 Active semaglutide (OZEMPIC) 0.25 mg or 0.5 mg (2 mg/3 mL) subcutaneous injection penIndications:T ype 2 diabetes mellitus without complication, without long-term current use of insulin Inject 0.25 mg under the skin every 7 days. 3 mL 025 2024 Discontinued dextroamphetamin e-amphetamine (ADDERALL) 10 mg Tab tabletIndication s:Attention deficit disorder (ADD) without hyperactivity Take 1 tablet (10 mg total) by mouth daily for 28 days. 28 tablet 025 2024 Discontinued(R eomitchell) Active Problems Problem Noted Date Diagnosed Date Achilles tendinitis of right lower extremity Assessment & Plan (03/19/2024 5:35 PM EDT): Pt to use ibuprofen, modify activity and is referred to PT. Cervicalgia 07/21/2018 Assessment & Plan (07/21/2018 3:46 PM EST): Pt referred to P.T.. We'll consider imaging and Physiatry eval prn. Annual physical exam 07/01/2017 Assessment & Plan (12/17/2024 8:40 AM EDT): Pt UTD with Covid, flu, tdap vaccines and fasting labs . Pt counseled on diet, exercise and weight loss. Assessment & Plan (12/16/2023 5:00 PM EDT): Pt UTD with Covid, flu, tdap vaccines and will have fasting labs drawn. Counseled on diet, exercise and weight loss. Assessment & Plan (12/13/2022 4:54 PM EDT): Pt UTD with Covid, flu, tdap vaccines and will have fasting labs drawn. Counseled on diet, exercise and weight loss. Assessment & Plan (12/11/2021 4:23 PM EDT): Pt UTD with Covid, flu, tdap vaccines and will have fasting labs drawn next week. Counseled on diet, exercise and weight loss. Assessment & Plan (12/05/2020 6:36 PM EDT): Pt UTD with Covid, flu, tdap vaccines and will have fasting labs drawn next week. Counseled on diet, exercise and weight loss. Assessment & Plan (07/27/2019 3:45 PM EST): Pt UTD with vaccines and will have fasting labs drawn next week. Counseled on diet, exercise and weight loss. Assessment & Plan (07/21/2018 3:26 PM EST): Pt UTD with vaccines and fasting labs. Counseled on diet, exercise and weight loss. Assessment & Plan (07/01/2017 6:07 PM EST): Pt UTD with vaccines and fasting labs. Counseled on diet, exercise and weight loss. GERD (gastroesophageal reflux disease) 7 Assessment & Plan (12/16/2023 4:40 PM EDT): Pt requires pantoprazole. He does not tolerate holidays off the medication. Pt advised to avoid late night meals, spicy foods, foods high in fat, caffeine, tobacco and alcohol. Pt advised to elevate the head of the bed and reduce weight. Assessment & Plan (12/13/2022 4:52 PM EDT): Pt requires omeprazole. Pepcid was not helpful. Pt advised to avoid late night meals, spicy foods, foods high in fat, caffeine, tobacco and alcohol. Pt advised to elevate the head of the bed and reduce weight. Assessment & Plan (12/11/2021 4:21 PM EDT): Pt uses pepcid with good effect.. Pt advised to avoid late night meals, spicy foods, foods high in fat, caffeine, tobacco and alcohol. Pt advised to elevate the head of the bed and reduce weight. Assessment & Plan (12/05/2020 4:14 PM EDT): Pt uses esomeprazole with good effect.. Pt advised to avoid late night meals, spicy foods, foods high in fat, caffeine, tobacco and alcohol. Pt advised to elevate the head of the bed and reduce weight. Assessment & Plan (07/27/2019 3:27 PM EST): Pt uses pantoprazole prn. Symptoms have been better lately. Pt advised to avoid late night meals, spicy foods, foods high in fat, caffeine, tobacco and alcohol. Pt advised to elevate the head of the bed and reduce weight. We will hopefully be able to taper off ppi if pt is succesful with weight loss and improved diet. Assessment & Plan (07/21/2018 3:18 PM EST): Pt stable on PPI. Pt did not tolerate step down to H2 suman. Pt advised to avoid late night meals, spicy foods, foods high in fat, caffeine, tobacco and alcohol. Pt advised to elevate the head of the bed and reduce weight. We will hopefully be able to taper off ppi if pt is succesful with weight loss and improved diet. Assessment & Plan (07/01/2017 6:06 PM EST): Pt stable on PPI. , Pt advised to avoid late night meals, spicy foods, foods high in fat, caffeine, tobacco and alcohol. Pt advised to elevate the head of the bed and reduce weight. We will hopefully be able to taper off ppi if pt is succesful with weight loss and improved diet. Hypercholesterolemia 05/16/2017 Assessment & Plan (12/17/2024 8:30 AM EDT): Pt manages well with diet and exercise has not required statin since his bariatric surgery. Labs and diabetic control have been slipping. We will consider resuming statin although pt wishes to defer for now. Assessment & Plan (12/16/2023 4:36 PM EDT): Pt manages well with diet and exercise has not required statin to this point. We'll check labs and consider statin prn. Assessment & Plan (12/13/2022 4:50 PM EDT): Pt due for labs hba1c showed good control at 5.7 last year Pt due for labs and will have them drawn. Pt has stopped meds since his bariatric surgery and weight loss as control is much improved. He is backsliding a bit but intends to make improvements. We'll continue to monitor. Pt UTD with flu shot. Pt UTD with eye exam 07/12. Pt follows with [facility] as well. Assessment & Plan (12/11/2021 4:20 PM EDT): Pt had difficulty tolerating atorvastatin. He has had significant weight loss and statin was d/c several years ago. We'll check labs and reevaluate options as pt has put some weight back on.. Pt making efforts to eat a healthy diet and drop weight. Assessment & Plan (12/05/2020 6:36 PM EDT): Pt had difficulty tolerating atorvastatin. He has had significant weight loss and statin may no longer be warranted. We'll check labs and reevaluate options. Pt making efforts to eat a healthy diet and drop weight. Assessment & Plan (07/27/2019 3:25 PM EST): Pt had difficulty tolerating atorvastatin. We'll do a trial with rosuvastatin. Pt to have fasting labs drawn and is making efforts to drop weight. Assessment & Plan (07/21/2018 3:12 PM EST): Pt on statin and working on weight loss. He is improving diet and exercise. Recent labs are at goal. Assessment & Plan (07/01/2017 6:06 PM EST): Pt on statin and dropping weight. He is improving diet and exercise. Recent labs are at goal. Elevated blood pressure reading 05/16/2017 Calculus of gallbladder with acute on chronic cholecystitis without obstruction 05/16/2017 Ocular rosacea 05/16/2017 Assessment & Plan (12/17/2024 8:36 AM EDT): Follows with Dr Hannah Cilfton. Not requiring medication. Assessment & Plan (12/16/2023 4:39 PM EDT): Follows with Dr Hannah Clifton. Not requiring medication. Assessment & Plan (12/13/2022 4:50 PM EDT): Follows with Dr Hannah Clifton. Not requiring medication. Assessment & Plan (12/11/2021 4:20 PM EDT): Follows with Dr Warren. Clifton. Not requiring medication. Assessment & Plan (07/21/2018 3:17 PM EST): Follows with Dr Warren. Clifton. Not requiring medication. Assessment & Plan (07/01/2017 6:06 PM EST): Follows with Dr Warren. Clifton. 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 Clifton. Assessment & Plan (12/16/2023 4:39 PM EDT): Follows with Ophthalmology Dr Young and Dr Foster. Clifton. Assessment & Plan (12/11/2021 4:20 PM EDT): Follows with Dr Foster. Clifton. Assessment & Plan (07/27/2019 3:25 PM EST): Follows with Dr Foster. Clifton. Assessment & Plan (07/21/2018 3:17 PM EST): Follows with Dr Foster. Clifton. Assessment & Plan (07/01/2017 6:07 PM EST): Follows with Dr Foster. Clifton. Type 2 diabetes mellitus wit hout complication, without long-term current use of insulin 05/16/2017 Assessment & Plan (01/24/2025 8:36 AM EDT): Pt hgba1c at 7.2 in December. Started GLP1 Ozempic last month and has tolerated well. We will increase dose. He denies personal or family hx of MTC or MEN1. He is advised of potential side effects and will have close f/u. Pt follows with diabetic clinic at [facility] as well. Repeat labs in February. Assessment & Plan (12/17/2024 8:28 AM EDT): Pt has seen control slip with hgba1c up to 7.2. he previously was on metformin but has been able to manage through diet for a while. He would like to do a trial with a GLP1. He denies personal or family hx of MTC or MEN1. He is advised of potential side effects and will have close f/u. Pt follows with diabetic clinic at [facility] as well. Assessment & Plan (10/01/2024 4:49 PM EDT): Pt has been able to manage with diet and exercise reigmen. Pt's hba1c showing good control at 6.5 on 12/31/23 Pt over due for labs and will have them drawn. Pt has stopped meds since his bariatric surgery and weight loss as control is much improved. Pt advised to have annual flu shot and eye exam. Pt follows with diabetic clinic at [facility] as well. Assessment & Plan (12/16/2023 4:36 PM EDT): Pt has been able to manage with diet and exercise reigmen. Pt's hba1c showing excellent control at 5.7 when last checked in 2021. Pt over due for labs and will have them drawn. Pt has stopped meds since his bariatric surgery and weight loss as control is much improved. Pt UTD with flu shot. Pt due for eye exam. Pt follows with diabetic clinic at [facility] and believes a recent hgba1c showed good control. Addendum: Hgba1c 6.1 09/10/23 Assessment & Plan (12/11/2021 6:55 PM EDT): Pt's hba1c showing good control at 5.7 today. Pt due for labs and will have them drawn prior to f/u. Pt has stopped meds since his bariatric surgery and weight loss as control is much improved. He is backsliding a bit but intends to make improvements. We'll continue to monitor. Pt UTD with flu shot. Pt due for eye exam. Pt follows with [facility] as well. Assessment & Plan (12/05/2020 6:34 PM EDT): Pt's hba1c showed excellent control at 5.3 in April. Pt due for labs and will have them drawn next week. Pt has stopped meds since his bariatric surgery and weight loss as control is much improved. We'll continue to montor. Pt UTD with flu shot. Pt due for eye exam. Pt follows with [facility] as well. Assessment & Plan (07/27/2019 3:24 PM EST): Pt's hba1c showed excellent control at 5.9 in October. Pt due for labs and will have them drawn next week. Pt UTD with flu shot. Pt due for eye exam.Following at [facility] [place]. Continue current regimen metformin, lisinopril and atorvastatin. Assessment & Plan (07/21/2018 3:15 PM EST): Pt's hba1c stable at 6.0. Pt UTD with eye exam and flu shot. Following at [facility] [place]. Continue current regimen metformin, lisinopril and atorvastatin.. Refocus on weight loss. Repeat hgba1c in 6 months. Assessment & Plan (01/02/2018 4:40 PM EDT): Pt's hba1c notably improved at 5.8 from 10.8 six months prior. Pt UTD with eye exam and flu shot. Following at [facility] [place]. Continue current regimen. Refocus on weight loss. Assessment & Plan (06/09/2017 5:46 PM EST): Most recent A1c in excellent range, blood sugar data suggests excellent and stable control as well Will continue metformin monotherapy We discussed benefits of continuing this nursing home in terms of slowing progression of diabetes Advised to continue his current lifestyle efforts Will continue to follow up with Carmen Bueno for diabetes education and nutrition counseling, he will return to follow up with me for medical management on an as needed basis Assessment & Plan (05/16/2017 4:14 PM EST): Pt's hba1c notably improved at 6.1 from 10.8 three months prior. Pt UTD with eye exam and flu shot. Following at [facility]. Continue current regimen. 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 Pt denies side effects of concern. 6 month f/u . Assessment & Plan (10/01/2024 4:49 PM EDT): Pt doing well with Wellbutrin and adderall. Pt denies side effects of concern. 6 month f/u . Assessment & Plan (03/19/2024 5:35 PM EDT): Pt doing well with Wellbutrin and the addition of adderall. Pt denies side effects of concern. 6 month f/u . Assessment & Plan (12/16/2023 4:46 PM EDT): Has found wellbutrin helpful over the past 6-7 years. Pt is struggling more of late with his new job and would like to do a trial with adderall. Pt advised of potential side effects and will have close f/u. Assessment & Plan (12/13/2022 4:52 PM EDT): Doing well on wellbutrin. Continue current therapy. Assessment & Plan (12/11/2021 4:21 PM EDT): Doing well on wellbutrin. Continue current therapy. Assessment & Plan (12/05/2020 4:14 PM EDT): Doing well on wellbutrin. Continue current therapy. Assessment & Plan (07/27/2019 3:27 PM EST): Doing well on wellbutrin. Continue current therapy. Assessment & Plan (07/21/2018 3:19 PM EST): Doing well on wellbutrin. Continue current therapy. Assessment & Plan (01/02/2018 4:41 PM EDT): Doing well on wellbutrin. Continue current therapy. Assessment & Plan (07/01/2017 6:08 PM EST): Doing well on wellbutrin. Continue current therapy. Assessment & Plan (05/16/2017 4:14 PM EST): Doing well on wellbutrin. Continue current therapy. TAMMY on CPAP 05/16/2017 Assessment & Plan (12/17/2024 8:19 AM EDT): Stable on CPAP. Follows with Sleep medicine. Working on weight loss. Assessment & Plan (12/16/2023 4:30 PM EDT): Stable on CPAP. Follows with Sleep medicine. Working on weight loss. Assessment & Plan (12/13/2022 4:46 PM EDT): Stable on CPAP. Follows with Sleep medicine. Working on weight loss. Assessment & Plan (12/11/2021 4:19 PM EDT): Stable on CPAP. Follows with Sleep medicine. Working on weight loss. Assessment & Plan (12/05/2020 6:34 PM EDT): Stable on CPAP. Working on weight loss. Assessment & Plan (07/27/2019 3:16 PM EST): Stable on CPAP. Working on weight loss. Assessment & Plan (07/21/2018 3:10 PM EST): Stable on CPAP. Working on weight loss. Assessment & Plan (07/01/2017 6:08 PM EST): Stable on CPAP. Working on weight loss. Class 3 severe obesity with serious comorbidity and body mass index (BMI) of 40.0 to 44.9 in adult, unspecified obesity type Assessment & Plan (12/17/2024 8:33 AM EDT): Pt underwent bariatric surgery November 2019 Dr Nieves. Will do a trial with GLP-1. Assessment & Plan (12/16/2023 4:38 PM EDT): Pt underwent bariatric surgery November 2019 Dr Nieves. Assessment & Plan (12/05/2020 4:12 PM EDT): Follows with Dr Atkins and Dr Schultz for routine f/u. Assessment & Plan (07/27/2019 3:19 PM EST): Pt has an eval with weight loss clinic at [facility] pending. Pt has struggled to lose weight through diet and exercise Assessment & Plan (07/21/2018 3:13 PM EST): Pt has back slid a bit on his weight loss. He'll recommit himself to diet and exercise regimen. Fasting labs UTD. . Assessment & Plan (01/02/2018 4:39 PM EDT): Pt has back slid a bit on his weight loss. He'll recommit himself to diet and exercise regimen. Fasting labs UTD. Will repeat prior to CPE in June. Assessment & Plan (06/09/2017 5:44 PM EST): Excellent progress with weight loss This will improve insulin sensitivity and blood sugar control Advised to continue his excellent efforts Encounters Date Type Department Care Team Description 01/28/[address] [address] Stephani Soto LPN Medication Refill 01/24/2025 8:00 AM EDT Office Visit [address] [address] Antony Moreira DO Type 2 diabetes mellitus without complication, without long-term current use of insulin 01/03/[address] [address] Stephani Soto LPN Medication Refill 12/20/[address] [address] Antony Moreira DO 12/17/2024 8:00 AM EDT Office Visit [address] [address] Antony Moreira DO Annual physical exam (Primary Dx); Attention deficit disorder (ADD) without hyperactivity; TAMMY on CPAP; Type 2 diabetes mellitus without complication, without long-term current use of insulin; Hypercholesterolemia ; Class 3 severe obesity with serious comorbidity and body mass index (BMI) of 40.0 to 44.9 in adult, unspecified obesity type; Ocular rosacea; Retinoschisis, unspecified laterality 12/14/2024 8:37 AM EDT - 12/14/2024 11:59 PM EDT Hospital Encounter [facility] [address] [place] [address] Antony Moreira, Discharge Disposition: Home or Self Care 12/07/[address] [address] Stephani Soto LPN Medication Refill from Last 3 Months Immunizations Immunization Administration Dates Next Due COVID-19 (Pre-04/11) Moderna Vaccine, mRNA, PF 08/13/2020,07/16/2020 HPV9 05/05/2023 Hepatitis A, Adult 02/15/2018,08/17/2017 INFLUENZA, SPLIT VIRUS, TRIV ALENT W/ PRESERVATIVE IM 03/14/2014 Influenza Quadrivalent MDCK Preservative Free IM 05/05/2023,03/05/2022 Influenza Quadrivalent Prese rvative Free IM 04/27/2021,04/02/2020 Influenza Quadrivalent w/ Preservative IM 03/21/2019,03/09/2018,04/20/2017,2016,03/26/2016,03/14/2015 Influenza, Unspecified Formulation 02/18/2018 Pneumococcal conjugate PCV20 12/16/2023 Td (adult),2 Lf Tetanus Toxo id, PF, Adsorbed 10/11/2013 Tdap 08/12/2017 Family History Medical History Relation Comments Diabetes mellitus Father Hypertension Father Colon cancer Maternal Grandfather Prostate cancer Maternal Grandfather Coronary artery disease Mother Depression Mother Stroke Mother Relation Status Comments Father Maternal Grandfather Mother Social History Tobacco Use Types Packs/Day Years Used Date Smoking Tobacco: Never Smokeless Tobacco: Never Tobacco Cessation:Counseling Given: Not Answered Alcohol Use Standard Drinks/Week Comments Not Currently 0 (1 standard drink = 0.6 oz pur e alcohol) rare Child or Family Care Answer Date Record ed Do you have problems with on e of the following making it difficult for you to work, study, or receive health care? No 12/17/2024 Education Answer Date Recorded Are you interested in help w ith more adult education (for example, completing high school, GED, job training, learning the [place] language, technical skills, or developing parenting skills)? No 12/17/2024 Are you concerned about learning? Not on file 12/17/2024 No 12/17/2024 Yes 12/17/2024 Food Answer Date Recorded Within the past 6 months we worried whether our food would run out before we got money to buy more. Never True 12/17/2024 Within the past 6 months the food we bought just didn't last and we didn't have enough money to get more. Never True Residential Stability Answer Date Recor ded What is your housing situation today? I have jia sing 12/17/2024 How many times have you move d in the past 12 months? Zero (I did not move) 12/17/2024 Paying for Meds Answer Date Recorded Do you have trouble paying for medicines? No 12/17/2024 Paying Utility Bills Answer Date Record ed Do you have trouble paying your heating or elect ricity bill? No 12/17/2024 Transportation Answer Date Recorded Has the lack of transportati on kept you from medical appointments or from getting medications? No 12/17/2024 Unemployment Answer Date Recorded Are you currently unemployed or working on a part-time or temporary basis, and looking for work? No 12/17/2024 Digital Access Answer Date Recorded No 12/17/2024 Yes 12/17/2024 Do you have reliable internet access at home? Ye s 12/17/2024 Do you have a device (e.g., phone, tablet, computer) with a working camera? Yes 12/17/2024 Intimate Partner Violence Answer Date R ecorded Denied Basic Needs Not on file 12/17/2024 In the past 12 months have y ou been in a relationship with a person who hurts, threatens, or tries to control you? No 12/17/2024 Worried food would run out Not on file 12/17 In the past 12 months have y ou been in a relationship with a person who hurts, threatens, or tries to control you? 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 on file Not on file Not on file Last Filed Vital Signs Vital Sign Reading Time Taken Comments Blood Pressure 110/70 01/24/2025 8:04 AM EDT Pulse 101 01/24/2025 8:04 AM EDT Temperature 36.6 C (97.8 F) 01/24/2025 8:04 AM EDT Respiratory Rate 20 12/17/2024 8:09 AM EDT Oxygen Saturation 96% 01/24/2025 8:04 AM EDT Inhaled Oxygen Concentration - - Weight 136.4 kg (300 lb 12.8 oz) 01/24/2025 8:04 AM EDT Height 179.1 cm (5' 10.5 ) 12/17/2024 8:09 AM ED T Body Mass Index 42.55 12/17/2024 8:09 AM EDT Plan of Treatment Upcoming Encounters Date Type Department Care Team (Late st Contact Info) Description 12/19/2025 8:00 AM EDT Office Visit [facility] [address] [place] [address] Antony Moreira, [address] [place] [address] [email or web address] Health Maintenance Due Date Last Done Comments DIABETIC EYE EXAM 01/12/2024 01/11/2023 INFLUENZA VACCINE (#1) 2025 , 05/05/2023, 03/05/2022, Additional history exists HEMOGLOBIN A1C 06/15/2025 12/14/2024, 12/18, 09/10/2023, Additional history exists BLOOD PRESSURE 07/27/2025 01/24/2025 LIPID PANEL 12/14/2025 12/14/2024, 12/18, 09/10/2023, Additional history exists URINE MICROALBUMIN/CREATININE RATIO 12/14/2025 12/14/2024, 12/31/2023, 12/15/2021, Additional history exists DEPRESSION SCREENING 12/17/2025 12/17/2024 Adult Td,Tdap Booster 08/12/2027 08/12/2017, 014 HEPATITIS A VACCINES Aged Out 02/15/2018, 08/17/19 18 No longer eligible based on patient's age to complete this topic HIV ONE-TIME SCREENING (18-65 YEARS) Completed 09/01/2019 HEPATITIS C SCREENING Completed 12/15/2021, 022 PNEUMOCOCCAL VACCINES (0-49 years) Completed 12/16/2023 COVID-19 VACCINE Completed 06/05/2024, , 03/05/2022, Additional history exists SMOKING STATUS SCREENING (Once After 26 Yrs) Completed 01/24/2025 HIB VACCINES Aged Out No longer eligi ble based on patient's age to complete this topic MENINGOCOCCAL VACCINES (ACWY) Aged Out No longer eligible based on patient's age to complete this topic MENINGOCOCCAL VACCINES (B) Aged Out N o longer eligible based on patient's age to complete this topic Medical Devices Not on file Procedures Procedure Name Priority Date/Time Associated Diagnosis Comments TOXICOLOGY SCREEN, URINE Routine 12/17/2024 8:13 AM EDT Attention deficit disorder (ADD) without hyperactivity MICROALBUMIN/CREATINI NE RATIO, RANDOM URINE Routine 12/14/2024 9:06 AM EDT Type 2 diabetes mellitus without complication, without long-term current use of insulin DIRECT LDL Routine 12/14/2024 8:44 AM EDT COMPREHENSIVE METABOLIC PANEL Routine 12/14/2024 8:44 AM EDT Type 2 diabetes mellitus without complication, without long-term current use of insulin HEMOGLOBIN A1C Routine 12/14/2024 8:44 AM EDT Type 2 diabetes mellitus without complication, without long-term current use of insulin LIPID PANEL Routine 12/14/2024 8:44 AM EDT Type 2 diabetes mellitus without complication, without long-term current use of insulin Hypercholesterolemia HEPATITIS C ANTIBODY, QUALITATIVE Routine 12/15/2021 8:06 AM EDT Need for hepatitis C screening test from Last 3 Months or Most Recently Relevant to Health Maintenance Results * Toxicology screen, urine (12/17/2024 8:13 AM EDT) URINE CANNABINOIDS NONE DETECTED NONE DETECTED [facility] Comment:Cutoff: 50 ng/mL URINE COCAINE METAB NONE DETECTED NONE DETECTED [facility] Comment:Cutoff: 300 ng/mL URINE AMPHETAMINES NONE DETECTED NONE DETECTED [facility] Comment:Cutoff: 1000 ng/mL URINE METHADONE NONE DETECTED NONE DETECTED [facility] Comment:Cutoff: 300 ng/mL URINE OPIATES NONE DETECTED NONE DETECTED [facility] Comment:Cutoff: 300 ng/mL URINE PHENCYCLIDINE NONE DETECTED NONE DETECTED [facility] Comment:Cutoff: 25 ng/mL URINE OXYCODONE NONE DETECTED NONE DETECTED [facility] Comment:Cutoff: 300 ng/mL URINE BARBITURATES NONE DETECTED NONE DETECTED [facility] Comment:Cutoff: 200 ng/mL URINE BENZODIAZEPINE NONE DETECTED NONE DETECTED [facility] Comment:Cutoff: 200 ng/mL URINE BUPRENORPHINE NONE DETECTED NONE DETECTED [facility] Comment:Cutoff: 5 ng/mL Fentanyl, urine NONE DETECTED NONE DETECTED [facility] Comment: Cutoff: 5 ng/mL INTERPRETATION FOR TOXICOLOGY PANEL: These results are unconfirmed and should be used for Medical Treatment purposes only. Urine (Urine) 12/17/2024 8:1 3 AM EDT 12/17/2024 1:36 PM EDT Sanako Antony Moreira DO URINE ORDERABLES Final Result Performing Organization Address [facility] de Phone Number [address] [address] * Microalbumin/creatinine ratio, random urine (12/14/2024 9:06 AM EDT) Pathologist [facility] URINE MICROALBUMIN <1.2 0 - 2.3 mg/dL [facility] URINE CREATININE 46 mg/dL [facility] MICROALB/CRE RATIO NOT CALCULATED 0 - 20 mg/g Cre [facility] Comment:due to Microalbumin <1.2 Urine (Urine) 12/14/2024 9:0 6 AM EDT 12/14/2024 9:08 AM EDT Sanako Antony Reddy [employer] DO URINE ORDERABLES Final Result Performing Organization Address [facility] de Phone Number [address] [address] * DIRECT LDL (12/14/2024 8:44 AM EDT) Direct LDL 67 <100 mg/dL [facility] Comment: (NOTE) Greatly elevated Triglycerides values (>1200 mg/dL) interfere with the dLDL assay. Desirable range <100 mg/dL for primary prevention; <70 mg/dL for patients with CHD or diabetic patients with > or = 2 CHD risk factors. 12/14/2024 8:44 AM EDT 12/14/2024 9:05 AM EDT Sanako Antony Moreira DO LAB BLOOD ORDERABLES Final Resul t [employer] [facility] [facility] [address] [facility] [address] [address], [facility] * (ABNORMAL) Comprehensive metabolic panel (12/14/2024 8:44 AM EDT) SODIUM 137 133 - 146 mmol/L [facility] POTASSIUM 4.4 3.3 - 5.1 mmol/L [facility] CHLORIDE 98 96 - 108 mmol/L [facility] CO2 30 21 - 35 mmol/L [facility] BUN 12 6 - 19 mg/dL [facility] CREATININE 0.70 0.5 - 1.5 mg/dL [facility] GLUCOSE 154(H) 70 - 99 mg/dL [facility] ALBUMIN 4.1 3.9 - 4.8 g/dL [facility] TOTAL PROTEIN 6.9 6.5 - 8.0 g/dL [facility] CALCIUM 9.5 8.4 - 10.3 mg/dL [facility] ALKALINE PHOSPHATASE 77 39 - 117 U/L [facility] TOTAL BILIRUBIN 0.6 0.0 - 1.2 mg/dL [facility] AST 22 0 - 37 U/L [facility] ALT 22 0 - 40 U/L [facility] GLOBULIN 2.8 1 - 4.8 g/dL [facility] EGFR 117 >59 mL/min/1.7 3m2 [facility] Comment:Estimated glomerular filtration rate calculated using the CKD-EPI refit equation. ANION GAP 13 10 - 20 mmol/L [facility] Blood 12/14/2024 8:44 AM EDT 12/14/2024 9:06 AM EDT us Antony Moreira DO LAB BLOOD ORDERABLES Final Resul t [facility] [address] [place] [address] * (ABNORMAL) Hemoglobin A1c (12/14/2024 8:44 AM EDT) HEMOGLOBIN A1C 7.3(H) 4.3 - 5.8 % [facility] Blood 12/14/2024 8:44 AM EDT 12/14/2024 9:06 AM EDT us Antony Cmus DO LAB BLOOD ORDERABLES Final Resul t Performing Organization Address [facility]/ZIP Co de Phone Number [address] [address] * (ABNORMAL) Lipid panel (12/14/2024 8:44 AM EDT) HDL 35 mg/dL [facility] Comment: Interpretation <40 mg/dL: Low HDL cholesterol (major risk factor for CHD) Greater than or equal to 60 mg/dL: High HDL cholesterol ( negative risk factor for CHD) HDL - cholesterol is affected by a number of factors, e.g. smoking, excerise, hormones, sex and age. CHOLESTEROL 173 0 - 240 mg/dL [facility] TRIGLYCERIDES 417(H) 30 - 160 mg/dL [facility] LDL NOT CALCULATED 50 - 129 mg/dL [facility] Comment: Unable to calculate due to elevated TRIG of greater than 400. A measured LDL will be performed. CARDIAC RISK RATIO 4.9 3.4 - 5.0 [facility] Blood 12/14/2024 8:44 AM EDT 12/14/2024 9:05 AM EDT us Antony Moreira DO LAB BLOOD ORDERABLES Final Resul t Performing Organization Address [facility] Co de Phone Number [address] [address] * Hepatitis C antibody, qualitative (12/15/2021 8:06 AM EDT) HCV NON-REACTIV E NON-REACTI VE [facility] Blood 12/15/2021 8:06 AM EDT 12/15/2021 8:08 AM EDT us Antony Moreira DO LAB BLOOD ORDERABLES Final Resul t Performing Organization Address City/[facility]/ZIP Co de Phone Number [address] [place] [address] from Last 3 Months or Most Recently Relevant to Health Maintenance Insurance [facility] [place] [address] [facility] [place] [facility] 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 It is not the complete legal health record.[facility]
== END 2025-02-12 12:16 | disposition home or self-care (01) ==
LOC: HO.HBS 12:03
PROVIDERS: PCP Family Medicine; Visit Provider Physician Assistant Surgical
DX: E66.01 Morbid (severe) obesity due to excess calories (principal); Z68.41 Body mass index [BMI] 40.0-44.9, adult; Z90.3 Acquired absence of stomach [part of]; Z98.84 Bariatric surgery status
CPT/HCPCS: 98967

== ENCOUNTER → 2025-02-12 12:03 | Outpatient (BNVA) | payer BC, SELFPAY | PROVIDERS: PCP Family Medicine; Visit Provider Physician Assistant Surgical | DX: E66.01 Morbid (severe) obesity due to excess calories (principal); Z90.3 Acquired absence of stomach [part of]; Z68.41 Body mass index [BMI] 40.0-44.9, adult | CPT/HCPCS: 98967 ==